=== PATIENT | female | born 1945 | race Caucasian/White ===

== ENCOUNTER → 2016-12-18 15:49 | Outpatient (CLI) | payer MEDICARE, OTHER | END | disposition home or self-care (01) | LOC: D.MAMMO 11:15 | DX: Z12.31 Encounter for screening mammogram for malignant neoplasm of breast (principal) ==

== ENCOUNTER 2017-10-11 11:33 | Day surgery (SDC) | payer MEDICARE, OTHER ==
[~2017-10-11] VITALS: Ht 172.7 cm; Wt 71.4 kg
--- NOTE | ~2017-10-11 | OP ---
PATIENT NAME: MIS HOLGUIN MEDICAL RECORD: [id number] :47 LOCATION:D.OPS ADMISSION DATE: SURGEON: RICARDO SMITH MD DATE OF OPERATION: 10/11/2017 PREOPERATIVE DIAGNOSIS: Perirectal abscess. POSTOPERATIVE DIAGNOSIS: Perirectal abscess without evidence of a rectal fistula. PROCEDURE: 1. Anal evaluation under anesthesia. 2. Excisional debridement of perirectal abscess with marsupialization and packing. SURGEON: Ricardo Smith MD SUPPLIER QUALITY ENGINEERING MANAGER: None. BLOOD LOSS: Minimal. ANESTHESIA: General. COMPLICATIONS: None. The risks, possible complications and alternatives to procedure were explained to the patient. She elects to proceed. OPERATIVE COURSE: The patient was conveyed to the operating room electively on 10/11/2017. General anesthesia was induced by the anesthesia staff. The patient was placed in the lithotomy position. The buttocks were taped laterally. A small skin incision was accomplished over the perirectal abscess. I inserted an Angiocath. Through the Angiocath, I injected a combination of methylene blue and hydrogen peroxide. With the U-shaped anal retractors within the anus and rectum, I visualized the anus and rectum. I saw no bubbling of hydrogen peroxide or methylene blue into the rectum or anus and therefore, no evidence of a rectal or anal fistula. Further interrogation of the anus and rectum were carried out. The patient had moderately sized internal and external hemorrhoids. I then excised a defect overlying the abscess cavity. Dimensions of debridement, including margins, were 2.0 x 1.9 cm including skin and subcutaneous tissue as well as a portion of the abscess cavity. I then curetted out the abscess cavity. I then marsupialized with a running locking 3-0 Vicryl Rapide suture. I then packed it with iodoform gauze. A sterile dressing was applied. The patient was then extubated and conveyed to post-anesthesia care unit where she was in stable condition. She will be following up with me in the office. TRANSINT:[id number] Voice Confirmation ID: [id number] DOCUMENT ID: [id number] OPERATIVE REPORT [id number] MIS HOLGUIN RICARDO SMITH MD at 1450 CC: OSCAR SALCEDO [id number] DICTATION DATE: 10/18/17 1237 PIPELINE ENGINEER: 10/18/17 1335 [facility] 10/11/17 [place] [id number] [facility], [facility]901
--- NOTE | ~2017-10-11 | HP ---
PATIENT: MIS HOLGUIN MEDICAL RECORD: [id number] ACCOUNT: [id number] LOCATION:D.[facility] : 47 ADMISSION DATE: 10/11/17 HISTORY AND PHYSICAL EXAMINATION CHIEF COMPLAINT: Pain. HISTORY OF PRESENT ILLNESS: The patient has a perirectal abscess. She is to undergo anal evaluation under anesthesia with possible fistulotomy. The risks, possible complications, and alternatives to the procedure were explained to the patient. She elects to proceed. HOME MEDICINES: Zocor. ALLERGIES: No known drug allergies. SOCIAL HISTORY: Nonsmoker. PAST MEDICAL AND SURGICAL HISTORY: Hyperlipidemia. REVIEW OF SYSTEMS: Negative for CVA or seizures. Negative for diabetes or thyroid problems. Negative for renal disease or hepatitis. PHYSICAL EXAMINATION: GENERAL: The patient does not appear acutely ill. She does not appear chronically ill. VITAL SIGNS: Reviewed. EARS: External ears appear normal. EYES: Extraocular movements are intact. NECK: Trachea is midline. CHEST: No intercostal retractions. PULMONARY: Nonlabored, no stridor. ABDOMEN: Nontender. The entire physical examination was performed in the presence of a female nurse. IMPRESSION: Perirectal abscess, rule out a rectal fistula. PLAN: Plan will be anal evaluation under anesthesia, debridement of perirectal abscess, possible fistulotomy. TRANSINT:[id number] Voice Confirmation ID: [id number] DOCUMENT ID: [id number] ROMMEL SMITH MD at 1131 CC: OSCAR SALCEDO MD [id number] DICTATION DATE: 10/11/17 1518 FILM OR TAPE LIBRARIAN: 10/11/17 1614 [facility] 10/11/17 [place] [id number]
[~2017-10-11 11:33] MED LIST: ZOCOR20 MG PO
[2017-10-11 12:11] VITALS: BP 148/81; Ht 172.7 cm; Wt 71.4 kg
[2017-10-11 12:53] LABS: HEMOGLOBIN 12.2 g/dL (12-16); MCH 30.5 pg (26.0-34.0); MCHC 32.1 g/dL (31.0-37.0); MEAN PLATELET VOLUME 10.9 fL (7.4-10.4); RDW 13.3 % (11.5-14.5); WBC 7.5 10x3/uL (4.8-10.8)
== END 2017-10-11 16:55 | disposition home or self-care (01) ==
LOC: D.OPS 11:33 → D.PAN 13:15 → D.OPS 13:30
PROVIDERS: Anesthesiology
DX: L02.31 Cutaneous abscess of buttock (principal); E78.5 Hyperlipidemia, unspecified; Z01.812 Encounter for preprocedural laboratory examination

== ENCOUNTER 2018-12-19 09:00 | Outpatient (CLI) | payer MEDICARE, OTHER ==
[2017-10-11 12:11] VITALS: BMI 23.9
== END 2018-12-19 10:00 | disposition home or self-care (01) ==
LOC: D.MAMMO 09:00
PROVIDERS: ATTEND Family Medicine
DX: Z12.31 Encounter for screening mammogram for malignant neoplasm of breast (principal)

== ENCOUNTER 2021-01-30 10:15 | Outpatient (CLI) | payer MEDICARE, OTHER ==
[2017-10-11 12:11] VITALS: BMI 23.9
== END 2021-01-30 23:59 | disposition home or self-care (01) ==
LOC: D.MAMMO 10:15
PROVIDERS: ATTEND Family Medicine
DX: Z12.31 Encounter for screening mammogram for malignant neoplasm of breast (principal)